=== PATIENT | male | born 1995 | race Caucasian/White ===

== ENCOUNTER 2018-10-30 13:13 | Emergency (ER) | payer MEDICAID ==
[~2018-10-30 13:13] MED LIST: NAPR-56 PO; NAPR-996 PO
--- NOTE | 2018-10-30 14:58 | NUR ---
PT CALLED TO TRIAGE X3, NIL. AIRPLANE ELECTRICIAN NOTIFIED
== END 2018-10-30 13:54 | disposition left against medical advice (07) ==
LOC: ER 13:14
DX: Z00.8 Encounter for other general examination (principal); Z53.21 Procedure and treatment not carried out due to patient leaving prior to being seen by health care provider

== ENCOUNTER 2019-05-07 13:48 | Emergency (ER) | payer MEDICAID ==
[~2019-05-07] VITALS: Ht 167.6 cm; Wt 56.5 kg
--- NOTE | 2019-05-07 14:20 | NUR ---
Security was unable to locate patient in the parking lot. 911 called and an officer is en route. Person matching description requesting a jump for his car in the parking lot. Security to parking lot.
--- NOTE | 2019-05-07 14:31 | NUR ---
Patient standing on far side of parking lot by [facility], continuing to state he is homicidal and suicidal. air support control officer with patient. Patient refusing to come back into hospital. 911 called a second time.
--- NOTE | 2019-05-07 15:09 | NUR ---
Pt brought in from parking lot by [employer] and placed on 5150 by Officer.
--- NOTE | 2019-05-07 15:13 | NUR ---
PT IN BED 07 [facility]
--- NOTE | 2019-05-07 15:27 | NUR ---
Pt handcuffs removed by Officer, Pt changed into green scrubs, Pt belongings locked in lockers in ambulance bay. Yamileth PCT is sitter for patient. DONY Mancuso at bedside.
[2019-05-07] MEDS ORDERED: NO HOME MEDS (15:33)
[2019-05-07 15:53] LABS: BASOPHILS % (AUTO) 0.2 % (0-1); EOSINOPHILS # (AUTO) 0.2 X10'3 (0-0.9); EOSINOPHILS % (AUTO) 1.9 % (0-6); HEMATOCRIT 43.9 % (42.0-52.0); HEMOGLOBIN 15.3 g/dl (14.0-17.9); LYMPHOCYTES # (AUTO) 1.1 X10'3 (1.1-4.8); LYMPHOCYTES % (AUTO) 9.6 % (21-51); MEAN CORPUSCULAR HEMOGLOBIN 33.8 PG (27.0-31.0); MEAN CORPUSCULAR HGB CONC 34.8 g/dL (33.0-36.5); MEAN CORPUSCULAR VOLUME 97.2 FL (78-98); MEAN PLATELET VOLUME 7.3 FL (7.4-10.4); MONOCYTES # (AUTO) 0.7 X10'3 (0-0.9); MONOCYTES % (AUTO) 6.5 % (2-12); NEUTROPHILS # (AUTO) 9.1 X10'3 (1.8-7.7); NEUTROPHILS % (AUTO) 81.8 % (42-75); PLATELET COUNT 222 X10'3 (140-440); RED BLOOD COUNT 4.51 X10'6 (4.70-6.10); RED CELL DISTRIBUTION WIDTH 12.6 % (11.5-14.5); WHITE BLOOD COUNT 11.1 X10'3 (4.5-11.0)
[2019-05-07 16:08] LABS: ALANINE AMINOTRANSFERASE 29 U/L (12-78); ALBUMIN 4.5 G/DL (3.4-5.0); ALBUMIN/GLOBULIN RATIO 1.3 (1.1-1.5); ALKALINE PHOSPHATASE 58 IU/L (46-116); ANION GAP 8 (8-16); ASPARTATE AMINO TRANSFERASE 16 U/L (10-37); BILIRUBIN,TOTAL 0.7 MG/DL (0.1-1.0); BLOOD UREA NITROGEN 17 MG/DL (7-18); CALCIUM 8.8 MG/DL (8.5-10.1); CHLORIDE 107 MMOL/L (99-107); CREATININE 0.81 MG/DL (0.60-1.10); GLUCOSE 102 MG/DL (70-104); POTASSIUM 4.1 MMOL/L (3.5-5.1); SODIUM 142 MMOL/L (135-145); TOTAL CARBON DIOXIDE 26.7 MMOL/L (24-32); eGFR > 90 ML/MIN
[2019-05-07 16:14] LABS: URINE AMPHETAMINE SCREEN NEGATIVE (Neg); URINE BARBITUATE SCREEN NEGATIVE (Neg); URINE BENZODIAZEPINES SCREEN NEGATIVE (Neg); URINE CANNABINOID SCREEN POSITIVE (Neg); URINE COCAINE SCREEN NEGATIVE (Neg); URINE METHADONE SCREEN NEGATIVE (Neg); URINE OPIATE SCREEN NEGATIVE (Neg); URINE PHENCYCLIDINE SCREEN NEGATIVE (Neg)
[2019-05-07 16:17] LABS: ETHANOL < 0.010 GM/DL (0.0-0.010)
--- NOTE | 2019-05-07 16:42 | NUR ---
FAXED PT PACKET TO [facility] OFFICE, CONFIRMED RECIEVAL.
--- NOTE | 2019-05-07 17:00 | NUR ---
Patient walked up to nurses station and requested medication to sleep. RN explained we don't give medication to sleep at 1700 but he could ask at bedtime if he is unable to fall asleep. Patient verbalized understanding. Patient went back to bed. Continue to monitor.
--- NOTE | 2019-05-07 17:40 | NUR ---
Patient has visitor. Continue to monitor.
--- NOTE | 2019-05-07 17:51 | NUR ---
[facility] evaluating patient. Continue to monitor.
--- NOTE | 2019-05-07 18:40 | NUR ---
Patient is on bed 23, visiting with his x girlfriend. He is tearful, he admits to depression. He has S/I, his plan is to shoot self with a gun. Recent of his brother, X girlfriend is , he is living in his car. Patient is cooperative with staff. Patients speech is quiet with a regular rate and rhythm. Eye contact is intermittent. Patient states he desires sleep medicine tonight. Patients bed is in view from the nursing station.
--- NOTE | 2019-05-07 20:20 | NUR ---
Pt up to bathroom to perform evening toilet. No assistance required.
[2019-05-07] MEDS ORDERED: traZODone 50mg tablet PO SCH (21:10)
--- NOTE | 2019-05-07 21:44 | NUR ---
Nurse to nurse report to Flo at [facility] in [place].
[2019-05-07] MEDS ORDERED: diphenhydrAMINE 25mg capsule PO ONE (22:00)
[2019-05-07] MEDS ORDERED: LORazepam 1 MG tablet PO ONE (22:00)
--- NOTE | 2019-05-07 22:05 | NUR ---
Pt has been accepted at [facility]. Pt to be transported 05/08. Time unknown. Accepting physican - Dr. Damaris mart MD.
--- NOTE | 2019-05-07 22:28 | NUR ---
Patient given ativan and benadryl for his anxiety and inability to sleep. Patient is cooperative and medication compliant.
--- NOTE | 2019-05-07 23:04 | NUR ---
Patient is sleeping on his left side. In direct view from nursing station.
--- NOTE | 2019-05-08 06:48 | NUR ---
Patient sleeping supine. No distress observed. continue to monitor.
--- NOTE | 2019-05-08 08:50 | NUR ---
[facility] evaluating patient. Continue to monitor.
--- NOTE | 2019-05-08 10:05 | NUR ---
Patient sleeping on left side. No distress observed. Continue to monitor.
--- NOTE | 2019-05-08 11:55 | NUR ---
Patient sleeping on right side. No distress observed. Continue to monitor.
[2019-05-08] MEDS: NICOTINE POLACRILEX 2 MG LOZENGE BC PRN ×2 (13:09→20:04)
--- NOTE | 2019-05-08 13:20 | NUR ---
RN gave patient his nicotine lozenge but patient has not eaten his lunch yet. Patient states the meals remind him of being in [facility] and that is triggering him. Patient calm. Continue to monitor.
--- NOTE | 2019-05-08 15:49 | NUR ---
Patient speaking on the phone. No distress observed. Continue to monitor.
[2019-05-08 17:51] VITALS: BP 110/65
--- NOTE | 2019-05-08 18:30 | NUR ---
Received report and assumed care of patient from [facility].
--- NOTE | 2019-05-08 19:42 | NUR ---
The patient is on the phone with family members.
== END 2019-05-08 20:27 ==
LOC: ER 13:49
DX: R45.851 Suicidal ideations (principal); R07.81 Pleurodynia; D72.829 Elevated white blood cell count, unspecified; F32.9 Major depressive disorder, single episode, unspecified; Z88.0 Allergy status to penicillin; Z79.899 Other long term (current) drug therapy
CPT/HCPCS: 36415; 71045; 80053; 80305; 80320; 84443; 85025; 99285; Q0163

== ENCOUNTER 2019-05-08 20:08 | Inpatient (IN) | payer MEDICAID ==
[~2019-05-08] VITALS: Ht 167.6 cm; Wt 55.1 kg
[~2019-05-08 20:08] MED LIST changes: -NAPR-56 PO; -NAPR-996 PO; +NO HOME MEDS
[2019-05-08] MEDS ORDERED: acetaminophen 325mg tablet PO PRN ×2 (20:45)
[2019-05-08] MEDS ORDERED: magnesium hydroxide 30ml (MOM) UD suspension PO PRN (20:45)
[2019-05-08] MEDS ORDERED: mag hydrox/Alum hydrox/simeth 30ml oral suspension PO PRN (20:45)
[2019-05-08] MEDS ORDERED: loperamide 2mg capsule PO PRN (20:45)
[2019-05-08] MEDS: hydrOXYzine 25 MG tablet PO PRN (21:47)
[2019-05-08] MEDS: NICOTINE POLACRILEX 2 MG LOZENGE MM PRN (21:47)
--- NOTE | 2019-05-08 22:10 | NUR ---
Admit note: Pt initially presented to the ED with suicidal ideations, reporting that he has a gun and was going to shoot himself. Pt recently lost his brother and had a breakup with a girlfriend and felt overwhelmed. Pt arrived to [facility] unit at 2054 from [facility] ED accompanied by Pamela [facility] unit tech and security via wheelchair. Pt ambulated on the unit with a steady gait. Pt had skin check by 2 RN's with no skin breakdown noted. Pt was oriented to unit, received a burrito for snack. Pt was cooperative and friendly during assessment. Pt is a smoker and was given a 2 mg lozenge for cravings.
[2019-05-08] MEDS: LORazepam 1 MG tablet PO PRN (23:12)
--- NOTE | 2019-05-09 00:03 | NUR ---
Nursing Progress Note: Chief Complaint Legal hold: Client on involuntary status for DTS. Why are they here: Pt self presented to ED reporting that he plans to shoot himself. Pt then left triage in ED and police were called, 5150 written and pt was brought back to ED for evaluation. Pt recently lost his brother to cancer and had a breakup with a girlfriend and is feeling overwhelmed. pt has hx of depression. Diagnosis/presenting symptoms: Persistent Depression. Pt is denying SI/HI, but reports feeling anxious and having difficulty sleeping. Assessment What has happened this shift: Pt arrived on unit at 2054 in green scrubs from [facility]. Pt was tearful when first arrived due to finding out that his 36 hour hold will be starting over in [facility]. pt was very cooperative, friendly, appropriate and appreciative of the care he is receiving. Pt reports that he is no longer feeling suicidal and believes that he just had an overreaction to some stressors in his life, mainly the loss of his brother 2 weeks ago. Pt was given a burrito for snack and watched tv before going to bed at approx 2300. pt received 2 mg nicotine lozenge and atarax and ativan prn's. S/I, H/I:denies A/VH: denies Sleep:asleept at this time ADL's:showered independently Group attendance:n/a Were meds taken:yes Any med S/E: no Mental Status Exam Appearance:clean, neat Eye contact:good Behavior:friendly Speech:normal Mood:sad Affect:congruent with mood Thought process:linear Thought Content:regretting his actions Cognition:alert Insight:fair Judgment:poor Interventions PRN's used:nicotine lozenge, atarax, ativan Therapeutic interventions:1:1 assessment, active listening, therapeutic conversation, medication administration/education/monitoring, encouragement to attend groups, Q 15 min safety checks. Restraints/seclusion/emergency medication: None Justification of Continued Inpatient Treatment: Interrupt current crisis, maintain safety of patient. Continued therapeutic support and medication management needed to provide stabilization, prevent decompensation, decreasing risk to patient and readmittance.
[2019-05-09 06:51] LABS: CHOL/HDL RATIO 3.4 (0.00-4.99); CHOLESTEROL 178 MG/DL (0-200); HDL CHOLESTEROL 52 MG/DL (35-60); LDL CHOLESTEROL 120 MG/DL (50-100); TRIGLYCERIDES 88 MG/DL (20-135)
[2019-05-09 07:00] VITALS: BP 95/61
[2019-05-09 07:58] VITALS: BP 95/61
[2019-05-09] MEDS: NICOTINE POLACRILEX 2 MG LOZENGE MM PRN ×4 (09:06→20:02)
--- NOTE | 2019-05-09 17:42 | NUR ---
Nursing Progress Note Legal hold: 5150 Client on involuntary status for DTS. Why are they here: Pt self presented to ED reporting that he plans to shoot himself. Pt then left triage in ED and police were called, 5150 written and pt was brought back to ED for evaluation. Pt recently lost his brother to cancer and had a breakup with a girlfriend and is feeling overwhelmed. pt has hx of depression. Diagnosis/presenting symptoms: Depression. Pt is denying SI/HI, but reports feeling anxious and having difficulty sleeping. Assessment What has happened this shift: Patient awoke for breakfast and medications. Pt. States that he wants to be discharged. That he just got drunk and did some crazy things, but has not been suicidal since that moment. Patient has been respectful and cooperative this shift. Patient stays out of bed for most of the day, socializes with peers and staff. S/I, H/I: denies A/VH: denies Sleep: 6.25 hrs. noc ADL's: showered independently Group attendance: Yes. Were meds taken: yes Any med S/E: no medications ordered. Mental Status Exam Appearance: clean, neat Eye contact: good Behavior: Calm, cooperative, friendly Speech: Soft, clear. Mood: Depressed. Affect: Blunted. Thought process:linear Thought Content:regretting his actions Cognition:alert Insight:fair Judgment:poor Interventions PRN's used:nicotine lozenge, atarax, ativan Therapeutic interventions:1:1 assessment, active listening, therapeutic conversation, medication administration/education/monitoring, encouragement to attend groups, Q 15 min safety checks. Restraints/seclusion/emergency medication: None Justification of Continued Inpatient Treatment: Interrupt current crisis, maintain safety of patient. Continued therapeutic support and medication management needed to provide stabilization, prevent decompensation, decreasing risk to patient and readmittance.
[2019-05-09 19:48] VITALS: BP 121/79
[2019-05-09] MEDS: hydrOXYzine 25 MG tablet PO PRN (20:02)
[2019-05-09] MEDS: mirtazapine 15mg tablet PO SCH (20:52)
[2019-05-09] MEDS: LORazepam 1 MG tablet PO PRN (20:52)
--- NOTE | 2019-05-10 00:35 | NUR ---
Nursing Progress Note: Chief Complaint: Depression with suicidal ideation Legal hold: 5150 Client on involuntary status for DTS. Report received from [facility] with use of [facility] Why are they here: Pt self presented to ED reporting that he plans to shoot himself. Pt then left triage in ED and police were called, 5150 written and pt was brought back to ED for evaluation. Pt recently lost his brother to cancer and had a breakup with a girlfriend and is feeling overwhelmed. pt has hx of depression. Diagnosis/presenting symptoms: Persistent Depression Assessment What has happened this shift: Pt was in group room watching tv at change of shift. Pt had a visit from his father and was tearful afterwards. when asked about it, pt responded, "it didn't go too well." Pt met with DONY [facility] and was prescribed remeron for depression. Pt believes that medication is going to be helpful for him, especially due to his recent life stressors. pt received 2 doses of 2 mg nicotine lozenge and atarax and ativan prn's for anxiety. Pt was pleasant and voiced appreciation of the care he is receiving. S/I, H/I:denies A/VH: denies Sleep:asleep at this time ADL's:showered independently Group attendance: snack Were meds taken:yes Any med S/E: no Mental Status Exam Appearance:clean, neat Eye contact:good Behavior:friendly Speech:normal Mood:sad Affect:congruent with mood Thought process:linear Thought Content: going home Cognition:alert Insight:fair Judgment:fair Interventions PRN's used:nicotine lozenge, atarax, ativan Therapeutic interventions:1:1 assessment, active listening, therapeutic conversation, medication administration/education/monitoring, encouragement to attend groups, Q 15 min safety checks. Restraints/seclusion/emergency medication: None Justification of Continued Inpatient Treatment: Interrupt current crisis, maintain safety of patient. Continued therapeutic support and medication management needed to provide stabilization, prevent decompensation, decreasing risk to patient and readmittance.
[2019-05-10 07:00] VITALS: BP 112/71
[2019-05-10] MEDS: lurasidone 20mg tablet PO SCH (08:32)
[2019-05-10] MEDS: NICOTINE POLACRILEX 2 MG LOZENGE MM PRN ×4 (12:21→20:59)
--- NOTE | 2019-05-10 17:34 | NUR ---
[facility] Progress Note Legal hold: 5150 Client on involuntary status for DTS. Why are they here: Pt self presented to ED reporting that he plans to shoot himself. Pt then left triage in ED and police were called, 5150 written and pt was brought back to ED for evaluation. Pt recently lost his brother to cancer and had a breakup with a girlfriend and is feeling overwhelmed. pt has hx of depression. Assessment What has happened this shift: Patient awoke for breakfast and meds, then went back to sleep until lunch time. Patient candidly speaks about his breakup with his girlfriend 4 days ago and his cry for help, making suicidal statements. Patient states that he speaks to his girlfriend that moved to [place] everyday. He states that he has deep anger issues and takes things out on those closest to him, so he is here to get better. Reports that he likes making people smile/laugh. S/I, H/I: denies A/VH: denies Sleep: 7.5 hrs. NOC. Napped in a.m. ADL's: showers independently. Group attendance: Yes. Were meds taken: yes Any med S/E : none noted. Mental Status Exam Appearance: clean, neat Eye contact: good Behavior: friendly, social. Calm and cooperative. Speech: normal Mood: Depressed. Affect: Blunted. Thought process: linear Thought Content: Cognition: alert Insight: fair Judgment: poor Interventions PRN's used: nicotine lozenge Therapeutic interventions: 1:1 assessment, active listening, therapeutic conversation, medication administration/education/monitoring, encouragement to attend groups, Q 15 min safety checks. Restraints/seclusion/emergency medication: None Justification of Continued Inpatient Treatment: Interrupt current crisis, maintain safety of patient. Continued therapeutic support and medication management needed to provide stabilization, prevent decompensation, decreasing risk to patient and readmittance.
[2019-05-10 20:12] VITALS: BP 123/81
[2019-05-10] MEDS: mirtazapine 15mg tablet PO SCH (20:57)
--- NOTE | 2019-05-11 04:06 | NUR ---
Nursing Progress Note Legal hold: 5150 Client on involuntary status for DTS Report received from [facility] using [facility] Why are they here: Pt self presented to ED reporting that he plans to shoot himself. Pt then left triage in ED and police were called, 5150 written and pt was brought back to ED for evaluation. Pt recently lost his brother to cancer and had a breakup with a girlfriend and is feeling overwhelmed. Pt has hx of Bipolar 1, per MD notes. Assessment What has happened this shift: Pt talking on the phone with his girlfriend around change of shift. She called twice this evening. During 1:1, pt is in good spirits expressing determination to maintain medication regimen and acquire a counselor to ensure he continues to prioritize his mental nikolas; 'I need to make sure I stay healthy so that I can care for those who need me. I have a baby coming so it is not all about me anymore. I need to be a good parent for my child and that means taking care of myself." Pt is optimistic and denies all symptoms that brought him in; denying SI, anxiety and rating his depression at 2/10. "I'm ready to leave, and I know that there will be up and downs on this journey but I'm feeling good about my future." Pt talked about music as a therapeutic coping skill for him as well as plans to potentially attend a trade school as opposed to a four year degree because "Academia never really agreed with me." S/I, H/I: Denies A/VH: Denies Sleep: See Sleep Assessment ADL's: Independent Group attendance: N/A Were meds taken: Yes Any med S/E: None observed nor reported Mental Status Exam Appearance: Clean, well-groomed, wearing appropriate street attire and nonskid socks Eye contact: Direct Behavior: Talkative, Watching TV, Engaging with staff and peers, Attending HS Snack Speech: Clear, normal tone and rhythm Mood: Determined, Hopeful Affect: Bright Thought process: Linear Thought Content: Goal-oriented Cognition: A/Ox4 Insight: Good Judgment: Fair Interventions PRN's used: Nicotine lozenge x2 Therapeutic interventions:1:1 assessment, active listening, therapeutic conversation, medication administration/education/monitoring, encouragement to attend groups, Q 15 min safety checks. Restraints/seclusion/emergency medication: None Justification of Continued Inpatient Treatment: Interrupt current crisis, maintain safety of patient. Continued therapeutic support and medication management needed to provide stabilization, prevent decompensation, decreasing risk to patient and readmittance.
[2019-05-11 07:52] VITALS: BP 113/67
[2019-05-11] MEDS: lurasidone 20mg tablet PO SCH (08:27)
[2019-05-11] MEDS: NICOTINE POLACRILEX 2 MG LOZENGE MM PRN (08:43)
[2019-05-11] MEDS ORDERED: MIRT15TA8 PO (09:53)
[2019-05-11] MEDS ORDERED: HYDR-3686 PO (09:53)
[2019-05-11] MEDS ORDERED: NICO-668 MM (09:53)
[2019-05-11] MEDS ORDERED: LURA20TA PO (09:53)
--- NOTE | 2019-05-11 12:23 | NUR ---
Discharge Note/Nursing Progress Note: Legal hold: 5150 Client on involuntary status for DTS Report received from [facility] using [facility] Why are they here: Pt self presented to ED reporting that he plans to shoot himself. Pt then left triage in ED and police were called, 5150 written and pt was brought back to ED for evaluation. Pt recently lost his brother to cancer and had a breakup with a girlfriend and is feeling overwhelmed. Pt has hx of Bipolar 1, per MD notes. Assessment What has happened this shift: Pt rated his depression at a 2/10 today. He denied SI. He stated that there are still things bothering him that he cannot control like his girlfriend breaking up with him. Pt indicates that he still wants to be a part of his baby's life. Pt states that he can go and stay with his parents and his siblings on his parents' property and that his girlfriend lives in [place]. Pt showed good insight, plans to follow up with [facility], expressed understanding of his new prescriptions, he will take the paper scripts to the pharmacy of his choice. Pt was escorted off the unit at 1222 by PCT, ambulated out of the building and to his car. S/I, H/I: Pt denied A/VH: Pt denied Sleep: Slept well per noc shift and pt report ADL's: Independent Group attendance: yes Were meds taken: Yes Any med S/E: None reported or observed Mental Status Exam Appearance: Clean, well-groomed, wearing appropriate street attire and nonskid socks Eye contact: Good Behavior: Pleasant, cooperative Speech: Clear, audible, normal rate and rhythm Mood: Appropriate to situation Affect: appropriate Thought process: Organized Thought Content: Future oriented, wants to be involved in his child's life. Cognition: A/O X 4 Insight: Good Judgment: Good Interventions PRN's used: Nicotine lozenge Therapeutic interventions:1:1 assessment, active listening, therapeutic conversation, medication administration/education/monitoring, discharge education, Q 15 min safety checks. Restraints/seclusion/emergency medication: None Justification of Continued Inpatient Treatment: Pt discharged home today.
== END 2019-05-11 12:22 | disposition home or self-care (01) | DRG 753 ==
LOC: ADULT MH 20:08
PROVIDERS: ADMIT Psychiatry & Neurology Psychiatry; ATTEND Psychiatry & Neurology Psychiatry
DX: F31.9 Bipolar disorder, unspecified (principal); R45.851 Suicidal ideations; F41.9 Anxiety disorder, unspecified; G47.00 Insomnia, unspecified; Z59.0 Homelessness; Z88.0 Allergy status to penicillin; Z79.899 Other long term (current) drug therapy
CPT/HCPCS: 36415; 80061; Z7610

== ENCOUNTER 2020-05-18 13:02 | Emergency (ER) | payer MEDICAID, OTHER ==
[~2020-05-18] VITALS: Ht 167.6 cm; Wt 56.8 kg
[~2020-05-18 13:02] MED LIST changes: +HYDR-3686 PO; +LURA20TA PO; +MIRT15TA8 PO; +NICO-668 MM
[2020-05-18 13:10] VITALS: BP 130/84
--- NOTE | 2020-05-18 14:25 | NUR ---
called for second time, not in lobby.
--- NOTE | 2020-05-18 14:39 | NUR ---
Called for third time, not in lobby
--- NOTE | 2020-05-18 14:44 | NUR ---
Discussed with Dr. Adhikari. Called patient's listed phone number to return, number was no longer in service. Called "person to notify" Irasema and left a message. Called mother, listed next of kin, spoke with mother and instructed her to contact [facility] to call ER.
== END 2020-05-18 16:54 | disposition left against medical advice (07) ==
LOC: ER 13:03
DX: R51.9 Headache, unspecified (principal); Z53.21 Procedure and treatment not carried out due to patient leaving prior to being seen by health care provider

== ENCOUNTER 2020-12-15 23:23 | Emergency (ER) | payer SELFPAY ==
[~2020-12-15] VITALS: Ht 167.6 cm; Wt 56.8 kg
[2020-12-15 23:42] VITALS: BP 161/115
== END 2020-12-15 23:56 ==
LOC: ER 23:23
DX: F10.920 Alcohol use, unspecified with intoxication, uncomplicated (principal); F32.9 Major depressive disorder, single episode, unspecified; Z88.0 Allergy status to penicillin; Z02.89 Encounter for other administrative examinations; V89.2XXA Person injured in unspecified motor-vehicle accident, traffic, initial encounter; Y93.89 Activity, other specified; Y92.89 Other specified places as the place of occurrence of the external cause; Y99.8 Other external cause status
CPT/HCPCS: 99283